=== PATIENT | female | born 1965 | race African-American/Black ===

== ENCOUNTER 2018-10-31 14:34 | Emergency (ER) | payer MEDICAID ==
[~2018-10-31] VITALS: Ht 170.2 cm; Wt 125.0 kg
[2018-10-31 14:40] VITALS: BP 165/96
== END 2018-10-31 22:26 | disposition left against medical advice (07) ==
LOC: ER 14:48
DX: R07.89 Other chest pain (principal); Z53.21 Procedure and treatment not carried out due to patient leaving prior to being seen by health care provider